=== PATIENT | male | born 1960 | race Caucasian/White ===

== ENCOUNTER 2017-09-18 13:55 | Inpatient (IN) | payer OTHER ==
[~2017-09-18] VITALS: Ht 185.4 cm; Wt 86.2 kg
--- NOTE | ~2017-09-18 | PR ---
[place], [place] PROGRESS NOTE NAME: HONEY JOHNSON UNIT #: [id number] ROOM: 311 DOCTOR: GAIL MOYER MD BIRTHDATE: [birth year] DOS: 09/21/2017 INTERVAL NOTE CHIEF COMPLAINT: "Doc, that really worked, thank you." SUMMARY OF THE VISIT: The patient was interviewed as he rested quietly in bed. He was visibly much calmer and he shook my hand and thanked me for a good night sleep and stated that he is even having less muscle spasm, but it is still somewhat present. He requested that I adjust his medicine a little bit more, but was very thankful for the relief that he got so quickly. MENTAL STATUS: He is alert and oriented with time gaps. Mood does seem to be now substantially trending towards euthymia. Affect is more appropriate. There is no keren or hypomania. There is no gross psychosis. Memory has gaps. PLAN: I will go ahead and increase the Zanaflex from 3 times a day to 4 mg 4 times a day. Continue to engage in individual and sen milieu activity, returning to the least restrictive environment when psychiatrically stable. GAIL MOYER MD CM:PNTRANS [phone] GAIL MOYER MD 09/21/17 3032 interface
--- NOTE | ~2017-09-18 | PR ---
[place], [place] PROGRESS NOTE NAME: HONEY JOHNSON UNIT #: [id number] ROOM: 311 DOCTOR: GAIL MOYER MD BIRTHDATE: [birth year] DOS: 09/24/2017 CHIEF COMPLAINT: "Morning doc." SUMMARY OF THE VISIT: The patient was interviewed in the quiet room. He was sitting there with a male peer. He engaged readily in short superficial conversation, voicing no complaints and stating that he does feel like he is getting better and is hopeful he can return home. When I questioned him as to whether this is home or [place], he can convincingly told me he was planning to go home, which is not the case. MENTAL STATUS: He is alert and oriented with significant time gaps. Mood does seem to be trending towards euthymia. Affect is more appropriate. There is no keren or hypomania. There are no gross psychotic symptoms. Short term memory remains problematic. PLAN: I will renew the p.r.n. Ativan in case he requires intervention. Continue to engage in individual and sen milieu activity, returning then to the least restrictive environment when psychiatrically stable. GAIL MOYER MD CM:PNTRANS [phone] GAIL MOYER MD 09/24/172041 interface
--- NOTE | ~2017-09-18 | WRIGHTHP ---
[place], [place] PATIENT HISTORY AND PHYSICAL EXAM NAME: [facility]NSON [facility] [id number] UNIT #: [id number] ROOM: 311 DOCTOR: GAIL MOYER MD BIRTHDATE: [birth year] DOS: 09/19/2017 INITIAL PSYCHIATRIC EVALUATION CHIEF COMPLAINT: "Hey doc, I need my Xanax and I need something for pain, no one is helping me here." HISTORY OF PRESENT ILLNESS: This is a 56-year-old white male who is a resident of [facility] in [place], [place]. The patient has a lengthy medical history that is remarkable for hypertension, cirrhosis of the liver with ascites and a plethora of comorbidities. The patient was admitted to [facility] after a fall requiring physical rehabilitation. Since his admission, patient has become increasingly resistive to care and has been refusing all aspects of care. He has been very demanding of pain meds and of benzodiazepines. He has been accusatory of staff stating that they have been abusing him. He has openly stated he is depressed and is suicidal, how much of this is because he is also requesting pain medication and it is not being given to him per his report. It is unclear. He is admitted in any case now to rule out organic factors, to attempt to stabilize on medication, to engage in individual and sen milieu activity, returning to the least restrictive environment when psychiatrically stable. PAST MEDICAL HISTORY: Rather lengthy and includes ascites, coronary artery disease, chronic kidney disease stage unspecified, hypertension, GERD, GI bleed, gout, hepatic failure, osteoarthritis, chronic pain, cirrhosis of the liver, seizure disorder, hepatitis C. SOCIAL HISTORY: The patient does have a history of alcohol abuse. He states per the chart that he quit drinking approximately 7 years ago. He is a smoker and he has used opiates chronically. ALLERGIES: He lists allergies to SULFA and LATEX. STRENGTHS: Good verbal skills, living in a supportive environment. WEAKNESSES: Cognitive decline and a plethora of physical ailments. MENTAL STATUS: He is alert and oriented to person, place, not necessarily to time. The patient reports he has seen me before and this is actually the first time I have ever met him. First, he stated he met me at [facility] then he changed his tune and stated that I had worked with him while he was at [facility]. The patient does tend to confabulate and is rather believable in his presentation. Mood does seem to be somewhat depressed with anxious overtones. He is also very pressured. He interrupted me multiple times as I was interviewing other patients in the room. He is very hard to redirect. He is very impulsive in his presentation. I do not see, however, the presence of any psychotic symptoms. Memory is poor, especially for short term events. DIAGNOSES: Intermittent explosive disorder, rule out major depression, recurrent and rule out dementia, not otherwise specified. [place], [place] PATIENT HISTORY AND PHYSICAL EXAM NAME: HONEY JOHNSON UNIT #: [id number] ROOM: 311 DOCTOR: GAIL MOYER MD BIRTHDATE: [birth year] PLAN: Routine screening examinations reveal him to have a low vitamin D level of 9.7. I will augment with vitamin D 50,000 International Units weekly. His vitamin B12 level is also low normal at 287. I will go ahead and give him vitamin B12 injection of 1000 mcg IM monthly. I have discontinued his Xanax as I will stay away from addictive agents and utilize Vistaril 50 mg t.i.d. I have also started him on Risperdal 0.5 mg in the morning and 1 mg at nighttime to decrease some of his impulsivity and mood lability. I also started him on Remeron 15 mg at nighttime to aid sleep. We will attempt as much as possible to avoid addictive agents. I will defer any pain management issues to the hospitalist and acquiesced to their decision as to whether or not anything such as an opiate should be utilized for this gentleman. GAIL MOYER MD CM:HISPHYS:PATIENT HISTORY AND PHYSICAL EXAMINATION [id number] GAIL MOYER MD 10/02/17 7386 interface
--- NOTE | ~2017-09-18 | PR ---
[place], [place] PROGRESS NOTE NAME: HONEY JOHNSON UNIT #: [id number] ROOM: 311 DOCTOR: GAIL QUINTANA MD BIRTHDATE: [birth year] DOS: 09/20/2017 CHIEF COMPLAINT: "I didn't sleep Dr. Quintana." SUMMARY OF THE VISIT: The patient was interviewed in his room. He reports he did not sleep. He continues to complain of increased anxiety and is very nervous per his report all day long. His mind races and he is unable to shut things down. He reports no side effects from the medicine and is willing to allow me to adjust things accordingly. MENTAL STATUS: He is alert and oriented with some time gaps. Mood does seem to be still anxious and fretful. There is no keren or hypomania. No gross psychosis. Short-term memory has mild gaps, otherwise, he is intact. PLAN: I will discontinue Risperdal in lieu of Seroquel 50 mg twice daily and 100 at bedtime. This should help stabilize his mood as well as augment the effectiveness of the antidepressant while reducing anxiety. I will go ahead and utilize Zanaflex for his anxiety as well as a non-benzodiazepine alternative to try to help with his anxiety. We are discontinuing the Vistaril. GAIL QUINTANA MD CM:PNTRANS [phone] GAIL QUINTANA MD 09/21/17 1017 interface
--- NOTE | ~2017-09-18 | PR ---
[place], [place] PROGRESS NOTE [id number] UNIT #: [id number] ROOM: 311 DOCTOR: GAIL MOYER MD BIRTHDATE: [birth year] DOS: 09/22/2017 INTERVAL NOTE CHIEF COMPLAINT: "I had a rougher day yesterday, doc." SUMMARY OF THE VISIT: The patient was interviewed in the dining area where he was sitting, eating his breakfast. He engaged readily in conversation. He reports that unlike previously, he had a rougher day yesterday. He did not sleep as well and felt more on edge and irritable. He convincingly denies any medication side effects and no sedation, somnolence, extrapyramidal symptoms, or tardive dyskinesias noted. MENTAL STATUS: He is alert and oriented with significant gaps. Mood does seem to be still trending towards euthymia and affect is much more appropriate. There is no keren, hypomania, or gross psychotic symptoms. Short term memory continues to be problematic. PLAN: I will go ahead and increase his Seroquel to 100 mg 3 times daily in an effort to decrease his impulsivity and to augment the antidepressant hoping to stabilize his mood. We will engage in individual and sen milieu activity, returning then to the least restrictive environment when psychiatrically stable. GAIL MOYER MD CM:PNTRANS [phone] GAIL MOYER MD 09/22/17 1225 interface
--- NOTE | ~2017-09-18 | DS ---
[place], [place] DISCHARGE SUMMARY [id number] UN[facility] #: [id number] ROOM: 311 DOCTOR: GAIL MOYER MD BIRTHDATE: [birth year] DOS: 09/25/2017 CHIEF COMPLAINT: "Hey doc, I need my Xanax and I need something for pain, no one is helping me here." HISTORY OF PRESENT ILLNESS: This is a 56-year-old white male who is a resident of [facility] in [place], [place]. The patient has a lengthy medical history that is remarkable for hypertension, cirrhosis of the liver with ascites and many comorbidities. The patient was admitted to [facility] after a fall requiring physical rehabilitation. Since his admission there, he has become increasingly resistive to care and refusing all aspects of his care including medications. He has been very demanding there of pain meds and benzodiazepines. He has been accusatory of staff stating that they have been abusing him. He also has stated that he is depressed and suicidal. He is admitted now to rule out any organic factors and attempt to re-stabilize on medication. PAST MEDICAL HISTORY: Remarkable for cirrhosis of the liver, hepatitis C, ascites, coronary artery disease, chronic kidney disease stage unspecified, hypertension, GERD, GI bleed, gout, osteoarthritis, chronic pain and seizure disorder. SUMMARY OF THE HOSPITAL COURSE: The patient was admitted to the unit where his vitamin D level was low at 9.7, so this was augmented with vitamin D 50,000 international units weekly. His vitamin B12 was also low normal at 287, so he was given a vitamin B12 injection of 1000 mcg monthly, At first, Vistaril was utilized in place of a benzodiazepine to relieve his anxiety and he was also started on Risperdal 0.5 in the morning and 1 mg at nighttime to decrease his impulsivity. The patient reported that the Vistaril was ineffective, so this was switched to Zanaflex 4 mg 3 times a day. This did give him benefit and he stated that not only did it help relieve his anxiety, but it also helped relieve some of the muscle spasms that he was having. Later, the Risperdal was discontinued in lieu of Seroquel 50 mg t.i.d., which was increased then to 100 mg t.i.d. to stabilize his mood, to augment the effectiveness of his antidepressant regimen and to decrease his anxiety. The Seroquel did work all of these and he tolerated the medication well. Eventually, the Zanaflex was increased to its maximum dose during his stay of 4 mg 4 times a day. The patient had a significant change in mental status. He became much more compliant, much more pleasant. He engaged readily in group and individual activities and voiced a willingness and a readiness to return back to [place] to get further care ultimately hoping to get home in the long run. MENTAL STATUS AT DISCHARGE: He is alert and oriented to person and place, not necessarily time. He does confabulate to fill in the blanks and at times misrepresents reality. He was pleasant; however, jovial, able to joke. There are no suicidal thoughts, homicidal thoughts, or self-injurious thoughts. There is no hypomania or keren. There are no gross psychotic symptoms. Short term memory continued to be problematic. FINAL DIAGNOSES: Major depression, recurrent, severe; and dementia, not [place], [place] DISCHARGE SUMMARY NAME: HONEY JOHNSON UNIT #: [id number] ROOM: [facility] DOCTOR: GAIL MOYER MD BIRTHDATE: [birth year] otherwise specified. PLAN: The patient is to return to [facility] where he will receive further medical and psychiatric treatment. I will be the psychiatrist of record and follow him once he is readmitted there. His prescriptions have been sent with him. He is medically stable, psychiatrically stable and his biopsychosocial needs are adequately being met by the facility. GAIL MOYER MD CM:DISCHARG [id number] GAIL MOYER MD 09/25/17 0935 interface
--- NOTE | ~2017-09-18 | PR ---
[place], [place] PROGRESS NOTE NAME: HONEY JOHNSON UNIT #: [id number] ROOM: 311 DOCTOR: GAIL MOYER MD BIRTHDATE: [birth year] DOS: 09/23/2017 CHIEF COMPLAINT: "How are you today, doc." SUMMARY OF THE VISIT: The patient was interviewed as he was eating his breakfast in the dining area. He stopped and engaged readily in conversation. He did appear calmer and much more goal oriented in his discussion with me. His major complaint was continued poor sleep with mainly difficulty falling asleep. The daytime anxiety that was so prevalent does seem to have dissipated. He also reports he does not plan to go back to [place] but wants to go home, which is an irrational belief at this point. MENTAL STATUS: He is alert and oriented to person, place, not necessarily time. Mood does seem to be strongly trending towards euthymia. Affect is much more appropriate. The anxiety level has dissipated. There is no hypomania or keren. There are no true psychotic symptoms. No auditory or visual hallucinations are present. Short term memory continues to be problematic. PLAN: I will maintain his current psychotropic regimen. I will add Rozerem 8 mg at bedtime as a non-addictive sleep aid. Continue to support, monitor, engage in individual and sen milieu activity, returning to the least restrictive environment when psychiatrically stable. GAIL MOYER MD CM:PNTRANS 9 GAIL MOYER MD 09/23/17908 interface
[2017-09-18] MEDS ORDERED: KEPPRA500 MG PO (14:17)
[2017-09-18] MEDS ORDERED: REMERON30 M1 PO (14:18)
[2017-09-18] MEDS ORDERED: MULTIVITAMINS1 EAC6 PO (14:19)
[2017-09-18] MEDS ORDERED: XANAX0.5 MG PO (14:19)
[2017-09-18] MEDS ORDERED: NYSTATIN CREAM15 GM T (14:25)
[2017-09-18] MEDS ORDERED: K-TAB20 MEQ PO (14:27)
[2017-09-18] MEDS ORDERED: PAXIL30 M2 PO (14:27)
[2017-09-18] MEDS ORDERED: TYLENOL325 M2 PO (14:27)
[2017-09-18] MEDS ORDERED: SPIRONOLACTONE25 MG PO (14:28)
[2017-09-18] MEDS ORDERED: VITAMIN D35000 UNIT PO (14:29)
[2017-09-18] MEDS ORDERED: TRAMADOL HCL50 MG PO (14:30)
[2017-09-18 21:45] VITALS: BP 128/73
[2017-09-19 00:56] LABS: BASO % 0.9 % (0.0-1.0); EOS # 0.1 10*3/uL (0.0-0.4); EOS % 2.8 % (1.0-4.0); HEMATOCRIT 39.5 % (42.0-52.0); LYMPH # 0.4 10*3/uL (1.3-4.4); LYMPH % 8.9 % (27.0-41.0); MEAN CELL VOLUME 91.6 fl (80.0-94.0); MEAN CORPUSCULAR HGB 27.8 pg (27.0-31.0); MEAN CORPUSCULAR HGB CONC 30.4 g/dl (33.0-37.0); MEAN PLATELET VOLUME 11.3 fl (9.6-12.3); MONO # 0.3 10*3/uL (0.1-1.0); MONO % 6.8 % (3.0-9.0); NEUT # 3.7 10*3/uL (2.3-7.9); NEUT % 80.4 % (47.0-73.0); PLATELET COUNT AUTOMATED 109 10*3/uL (130-400); RED BLOOD COUNT 4.31 10*6/uL (4.50-5.90); RED CELL DISTRI WIDTH 14.9 % (0-14.5); WHITE BLOOD COUNT 4.6 10*3/uL (4.8-10.8)
[2017-09-19 01:12] LABS: ALBUMIN 2.9 gm/dl (3.1-4.5); ALKALINE PHOSPHATASE 193 U/L (45-117); BUN 17 mg/dl (7-24); CHLORIDE 105 mmol/L (98-107); CHOLESTEROL 179 mg/dL (<200); CREATININE 1.03 mg/dL (0.70-1.30); HDL CHOLESTEROL 36 mg/dl (40-60); LDL CHOLESTEROL 108 mg/dL (9-159); POTASSIUM 4.5 mmol/L (3.5-5.1); SGOT/AST 15 IU/L (3-35); SGPT/ALT 26 U/L (12-78); SODIUM 140 mmol/L (136-145); TOTAL PROTEIN 7.8 gm/dL (6.4-8.2); TRIGLYCERIDES 175 mg/dl (<150); VLDL CHOLESTEROL 35 mg/dL (6-40)
[2017-09-19 01:14] LABS: ALBUMIN 2.9 gm/dl (3.1-4.5); ALKALINE PHOSPHATASE 191 U/L (45-117); BUN 17 mg/dl (7-24); CHLORIDE 106 mmol/L (98-107); CHOLESTEROL 173 mg/dL (<200); CREATININE 0.99 mg/dL (0.70-1.30); LDL CHOLESTEROL 103 mg/dL (9-159); POTASSIUM 4.5 mmol/L (3.5-5.1); SGOT/AST 15 IU/L (3-35); SGPT/ALT 26 U/L (12-78); SODIUM 139 mmol/L (136-145); TOTAL PROTEIN 7.5 gm/dL (6.4-8.2); TRIGLYCERIDES 172 mg/dl (<150); VLDL CHOLESTEROL 34 mg/dL (6-40)
[2017-09-19 01:15] LABS: HDL CHOLESTEROL 36 mg/dl (40-60)
[2017-09-19 01:27] LABS: VITAMIN D, 25-HYDROXY 9.7 ng/mL (30-100)
[2017-09-19 07:42] VITALS: BP 121/73
[2017-09-19] MEDS ORDERED: VIMPAT150 MG PO (10:59)
[2017-09-19] MEDS ORDERED: OMEPRAZOLE D/R20 MG PO (11:00)
[2017-09-19] MEDS ORDERED: NADOLOL40 MG PO (11:01)
[2017-09-19] MEDS ORDERED: KEPPRA500 MG PO (11:03)
[2017-09-19 19:34] VITALS: BP 160/89
[2017-09-19 22:00] VITALS: BP 145/80
[2017-09-20 07:25] VITALS: BP 140/74
[2017-09-20 20:00] VITALS: BP 135/68
[2017-09-21 07:23] VITALS: BP 119/73
[2017-09-21 19:00] VITALS: BP 112/61
[2017-09-22 07:53] VITALS: BP 142/68
[2017-09-22 19:40] VITALS: BP 148/78
[2017-09-23 07:31] VITALS: BP 131/68
[2017-09-23 20:03] VITALS: BP 121/70
[2017-09-24 07:56] VITALS: BP 112/64
[2017-09-24] MEDS ORDERED: QUETIAPINE FUM100 M3 PO (11:24)
[2017-09-24] MEDS ORDERED: TIZANIDINE HCL4 MG PO (11:24)
[2017-09-24] MEDS ORDERED: MIRTAZAPINE15 M2 PO (11:24)
[2017-09-24] MEDS ORDERED: ROZEREM8 MG PO (11:24)
[2017-09-24] MEDS ORDERED: Vitamin D PO (11:24)
[2017-09-24 19:01] VITALS: BP 120/70
[2017-09-25 07:46] VITALS: BP 115/74
== END 2017-09-25 16:21 | disposition other institution (70) | DRG 884 ==
LOC: 3N 13:55
PROVIDERS: Psychiatry & Neurology Psychiatry
DX: F03.90 Unspecified dementia, unspecified severity, without behavioral disturbance, psychotic disturbance, mood disturbance, and anxiety (principal); F33.2 Major depressive disorder, recurrent severe without psychotic features; K70.31 Alcoholic cirrhosis of liver with ascites; K72.10 Chronic hepatic failure without coma; F23 Brief psychotic disorder; F63.81 Intermittent explosive disorder; Z79.899 Other long term (current) drug therapy; M17.10 Unilateral primary osteoarthritis, unspecified knee; M62.81 Muscle weakness (generalized); F41.9 Anxiety disorder, unspecified; B18.2 Chronic viral hepatitis C; I25.10 Atherosclerotic heart disease of native coronary artery without angina pectoris; K21.9 Gastro-esophageal reflux disease without esophagitis; M12.9 Arthropathy, unspecified; N18.9 Chronic kidney disease, unspecified; R00.1 Bradycardia, unspecified; M1A.9XX0 Chronic gout, unspecified, without tophus (tophi); I12.9 Hypertensive chronic kidney disease with stage 1 through stage 4 chronic kidney disease, or unspecified chronic kidney disease; G89.29 Other chronic pain; G40.909 Epilepsy, unspecified, not intractable, without status epilepticus; Z86.19 Personal history of other infectious and parasitic diseases; Z88.2 Allergy status to sulfonamides; Z91.040 Latex allergy status; Z86.73 Personal history of transient ischemic attack (TIA), and cerebral infarction without residual deficits; Z71.6 Tobacco abuse counseling; Z72.0 Tobacco use; Z82.49 Family history of ischemic heart disease and other diseases of the circulatory system; Z83.3 Family history of diabetes mellitus